=== PATIENT | male | born 1955 | race African-American/Black ===

== ENCOUNTER → 2017-11-22 | Day surgery (SDC) | payer OTHER ==
[~2017-11-22] MED LIST: ATORVASTATIN CA20 MG PO; FENTANYL CITRATE/PF 100MCG/2 ML INJ ONE; HUMULIN R100 UNIT/2 SQ; HYOSCYAMINE SULFATE 0.5 MG/ML AMP ONE; INSULIN REGULAR, HUMAN 100 UNIT/1 ML 3ML VIAL ONE; JARDIANCE PO; LIPITOR10 MG PO; METFORMIN HCL500 MG PO; MIDAZOLAM HCL 2 MG/2 ML VIAL ONE; NEXIUM20 MG PO; NIASPAN1000 MG PO; NOVOLOG100 UNITS1 SQ; PIOGLITAZONE HC45 MG PO; PROPOFOL IV EMULSION 10 MG/ML 50 ML VIAL ONE; RAMIPRIL10 MG PO; RAMIPRIL5 MG PO; TESTOSTERO100 MG/1 M IJ; TRESIBA; VICTOZA 3-0.6 MG/0.1 SQ; [UNRECOGNIZED DRUG - OTHER] PO
--- NOTE | 2017-11-22 15:33 | Operative Report ---
DATE OF PROCEDURE: November 22, 2017 REFERRING PHYSICIAN: Dr. Wagner Patrick. PROCEDURE PERFORMED: Colonoscopy and polypectomy. INDICATIONS FOR COLONOSCOPY: Colorectal cancer screening, personal history of colon polyps. MEDICATION: Patient was done under MAC. Please see anesthesiologist's note. PROCEDURE: With patient in the left lateral decubitus position, the flexible fiberoptic Olympus colonoscope was inserted into the rectum with ease and advanced all the way to the cecum. Two polyps were hot biopsied from the cecum, and both sites were prophylactically hemoclipped. One polyp was hot biopsied from the ascending colon. The transverse and descending appeared to be within normal limits. One polyp was hot biopsied from the sigmoid colon. Five polyps were hot biopsied from the rectum. The scope was then retroflexed into the distal rectum and small internal hemorrhoids were noted, none of which was actively bleeding. The scope was then straightened out. It was subsequently withdrawn. Patient tolerated the procedure well. IMPRESSION: 1. Cecal polyps times 2, hot biopsied, prophylactically hemoclipped. 2. Ascending colon polyp hot biopsied. 3. Sigmoid colon polyp hot biopsied. 4. Rectal polyps times 5 hot biopsied. 5. Internal hemorrhoids, none actively bleeding. PLAN: Follow up histology. Initiate high-fiber low-fat diet. Initiate high-fiber supplement. A total of 9 polyps were removed. Patient will need a followup colonoscopy in 3 years. Job#: [id number] EV cc:WAGNER PATRICK DO
== END | disposition home or self-care (01) ==
LOC: OR 10:04
PROVIDERS: ATTEND Internal Medicine Gastroenterology
DX: Z12.11 Encounter for screening for malignant neoplasm of colon (principal); K63.5 Polyp of colon; K62.1 Rectal polyp; K64.8 Other hemorrhoids; K21.9 Gastro-esophageal reflux disease without esophagitis; K76.0 Fatty (change of) liver, not elsewhere classified; I10 Essential (primary) hypertension; E11.9 Type 2 diabetes mellitus without complications; Z01.810 Encounter for preprocedural cardiovascular examination; Z79.4 Long term (current) use of insulin; Z87.891 Personal history of nicotine dependence; Z80.0 Family history of malignant neoplasm of digestive organs
CPT/HCPCS: 36415; 45384; 82948; 93005; J1980; J2250; 45378; 45385